=== PATIENT | male | born 1950 | race Caucasian/White ===

== ENCOUNTER 2018-10-16 15:08 | Outpatient (CLI) | payer MEDICARE, OTHER ==
--- NOTE | 2018-10-16 23:16 | Ultrasound Report ---
Reason: PERSONAL HISTORY OF NICOTINE DEPENDENCE Procedure Date: 10/16/2018 Accession Number: [id number] / [id number] Procedure: US - Aorta Screening CPT Code: FULL RESULT: EXAM: AORTIC DOPPLER ULTRASOUND. EXAM DATE: 10/16/2018 03:11 PM. CLINICAL HISTORY: Personal history of nicotine dependence. COMPARISON: None. TECHNIQUE: Real-time sonographic imaging of retroperitoneal vascular structures, including color-flow, Doppler flow and spectral analysis was performed by the ophthalmic technician. Multiple commissary representative static images were saved for review. FINDINGS: Aorta: The abdominal aorta was adequately visualized. No evidence for abdominal aortic aneurysm. Aorta proximal: Sagittal AP: 1.9 cm. Aorta mid: Transverse: 1.9 x 2.1 cm. Aorta distal: Transverse: 1.6 x 1.7 cm. Caliber within normal limits: Yes. Plaque visualized: No. Right iliac: Transverse: 1.1 x 1.3 cm. Left iliac: Transverse: 1.1 x 1.2 cm. Iliac Vessels: The visualized proximal common iliac arteries are normal in caliber. Other: Study limited by bowel gas and body habitus. IMPRESSION: No abdominal aortic aneurysm. RADIA
== END 2018-10-16 15:09 | disposition home or self-care (01) ==
LOC: DI 15:08
PROVIDERS: ATTEND Internal Medicine
DX: Z13.6 Encounter for screening for cardiovascular disorders (principal); Z87.891 Personal history of nicotine dependence
CPT/HCPCS: 76706

== ENCOUNTER 2019-05-22 01:24 | Emergency (ER) | payer MEDICARE, OTHER ==
--- NOTE | 2019-05-22 03:36 | ED Physician Documentation ---
History of Present Illness - Stated complaint Stated Complaint: POST OP EAR BLEEDING - Chief complaint Chief Complaint: Heent - History obtained from History obtained from: Patient - History of Present Illness Timing: Today - Additonal information Additional information: patient had MOHS procedure yesterday to left ear and is scheduled to have skin graft to the area tomorrow. He presents to ED due to bleeding through the dressing since having the procedure. Review of Systems Ears: reports: Ear pain (mild pain c/w recent procedure) Endocrine: denies: Easy bruising / bleeding PD PAST MEDICAL HISTORY - Past Medical History Past Medical History: Yes Cardiovascular: High cholesterol Psych: None - Past Surgical History Past Surgical History: Yes Ortho: Shoulder arthroplasty Derm: Skin grafts, Skin cancer surgery, Other - Present Medications Home Medications: Ambulatory Orders Medication Instructions Recorded Confirmed Metoprolol Succinate [Kapspargo 25 mg PO DAILY 05/22/19 05/22/19 Sprinkle] No Known Home Medications 05/22/19 05/22/19 - Allergies Allergies/Adverse Reactions: Allergies Allergy/AdvReac Type Severity Reaction Status Date / Time No Known Drug Allergies Allergy Verified 05/22/19 01:32 - Social History Does the pt smoke?: No Smoking Status: Never smoker Does the pt drink ETOH?: Yes Does the pt have substance abuse?: No - Immunizations Immunizations are current?: Yes - POLST Patient has POLST: No PD ED PE NORMAL - Vitals Vital signs reviewed: Yes - General General: Alert and oriented X 3, No acute distress, Well developed/nourished PD ED PE EXPANDED - HEENT HEENT Visual: 1 - laceration (surgical site has clean, sharp margins, no discharge. there was blood on the dressing, but no active bleeding from the site is noted after dressing removed.) Results - Vitals Vitals: Oxygen O2 Source Room air PD MEDICAL DECISION MAKING - ED course Complexity details: considered differential, d/w patient ED course: D/W Dr. Melchor (patient's well service derrick worker); recommends aluminum chloride (Drysol) but this is not available in ED. We discussed other options, specifically txa, gelfoam. As there is no active bleeding on my exam, and patient is scheduled to be reevaluated by Dr. Melchor later this morning, gelfoam should be sufficient for hemostasis Departure - Departure Disposition: 01 Home, Self Care Clinical Impression: Postoperative bleeding from incision Condition: Good Instructions: ED Wound Check Post Op Bleeding Discharge Date/Time: 05/22/19 05:04
[2019-05-22 05:04] VITALS: BP 132/76
== END 2019-05-22 05:04 | disposition home or self-care (01) ==
LOC: ED 01:24
DX: H95.41 Postprocedural hemorrhage of ear and mastoid process following a procedure on the ear and mastoid process (principal)
CPT/HCPCS: 99281; 99282

== ENCOUNTER 2023-06-09 08:00 | Outpatient (CLI) | payer MEDICARE, OTHER ==
--- NOTE | 2023-06-09 19:14 | XRAY Report ---
PROCEDURE: Hand 3 View LT INDICATIONS: LEFT HAND PAIN TECHNIQUE: 3 views of the hand(s) acquired. COMPARISON: None. FINDINGS: Bones: No fractures or dislocations. Mild diffuse IP joint space narrowing and juxta articular osteo phytosis. Mild first CMC joint space narrowing. No suspicious bony lesions. Soft tissues: No suspicious soft tissue calcifications or masses. No focal soft tissue swelling or radiopaque foreign body. IMPRESSION: 1. No acute osseous abnormality. If symptoms persist, consider repeat radiograph in 7-10 days. 2. 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 Reviewed by: Priyanka Diamond MD on 06/09/2023 7:13 PM PST Approved by: Priyanka Diamond MD on 06/09/2023 7:13 PM PST Station ID: [id number]
== END 2023-06-09 23:59 | disposition home or self-care (01) ==
LOC: DI.S 08:00
PROVIDERS: ATTEND Registered Nurse
DX: M18.12 Unilateral primary osteoarthritis of first carpometacarpal joint, left hand (principal)